=== PATIENT | male | born 1960 | race Caucasian/White ===

== ENCOUNTER 2021-10-06 06:15 | Day surgery (SDC) | payer OTHER ==
[~2021-10-06] VITALS: Ht 177.8 cm; Wt 110.0 kg
[~2021-10-06 06:15] MED LIST: HYDROmorphone 2 MG/ML INJ. IVP PRN; IV RINGERS,LACTATED 1000ML 1,000 ML IV SCH; PROCHLORPERAZINE 10 MG/2 ML VIAL. IVP PRN; fentaNYL PF VIAL 100 MCG/2 ML VIAL IVP PRN
[2021-10-06 06:29] VITALS: BP 200/105
[2021-10-06] MEDS ORDERED: hydrALAZINE 20 MG/ML VIAL. IVP ONE (06:30)
[2021-10-06] MEDS ORDERED: ASPI-886 PO (06:40)
[2021-10-06] MEDS ORDERED: DOXA8TAB59 PO (06:41)
[2021-10-06] MEDS ORDERED: FURO40TA4 PO (06:42)
[2021-10-06] MEDS ORDERED: LOSA-73 PO (06:43)
[2021-10-06] MEDS ORDERED: METF10007 PO (06:43)
[2021-10-06] MEDS ORDERED: POTA10TA12 PO (06:44)
[2021-10-06] MEDS ORDERED: PRAV40TA2 PO (06:44)
[2021-10-06] MEDS ORDERED: VENL150C PO (06:45)
[2021-10-06] MEDS ORDERED: PROPOFOL 10 MG/ML (20ML) VIAL. IV ONE (06:49)
[2021-10-06] MEDS ORDERED: ROCURONIUM 50 MG/5 ML VIAL. ONE ×2 (06:49→08:02)
[2021-10-06] MEDS ORDERED: EPINEPHrine VIAL 30 MG/30 ML VIAL ONE (06:54)
[2021-10-06] MEDS ORDERED: ONDANSETRON PF 4 MG/2 ML VIAL. ONE (06:57)
[2021-10-06] MEDS ORDERED: DEXAMETHASONE SOD PHOS 4 MG/ML VIAL ONE (06:57)
[2021-10-06] MEDS ORDERED: fentaNYL PF VIAL 100 MCG/2 ML VIAL ONE (06:58)
[2021-10-06] MEDS ORDERED: INSULIN LISPRO 100 UNIT/ML 3ML VIAL for OP,RR ONLY. SQ PRN (07:00)
[2021-10-06] MEDS ORDERED: BUPIVACAINE-EPI 0.5% 30 ML VIAL KIT. ONE (07:35)
--- NOTE | 2021-10-06 07:44 | HP ---
DATE OF SERVICE: 10/06/2021 ADMIT DATE: 10/06/2021 BRIEF HISTORY: The patient is a 39-year-old male who fell on his right shoulder in 08/2019, had significant problems with range of motion and also some weakness in the right shoulder. He had some significant issues after that occurred. This was noted to have significant pain and problematic issues as far as this right shoulder is concerned. He did undergo physical therapy, injections and multiple treatments. Nothing helped significantly at this point. Therefore, after evaluation, he was noted to need to undergo a right shoulder arthroscopy with repair of the rotator cuff. MEDICATIONS: Aspirin, doxazosin, furosemide, losartan, metformin, potassium chloride, pravastatin, and venlafaxine. MEDICATION ALLERGIES: None. PAST MEDICAL HISTORY: Also remarkable for hypertension as well as coronary artery disease, diabetes type 2, subsequent retinopathy, obesity, anxiety disorder. PAST SURGICAL HISTORY: Noncontributory. PHYSICAL EXAMINATION: Reveals there to be pain throughout the arc of motion. There are problems with isolation of the rotator cuff as far as strength is concerned, especially external rotation and isolation with a positive drop arm test. Also signs of pain with positive Speed test. No signs of instability of the shoulder. No atrophy of musculature, right versus left. Distal neurovascular status is fully intact. IMPRESSION AND PLAN: At this point, we have gone over the MRI as well as talked with him about the MRI, talked with him about treatment options. He wishes to undergo the right shoulder arthroscopy, possible tenolysis of the biceps tendon versus tenodesis, right rotator cuff repair at this point, subacromial decompression, possible distal clavicle resection. He understands the risks, complications as well as benefits and expectations of that surgery, postoperative protocol and followup. He will get set up in the operating room as soon as he talks with anesthesia today. JOSE ANGEL DR: Etta TID: [id number]
[2021-10-06] MEDS ORDERED: LABETALOL 20 MG/4 ML DISP.SYRIN. IVP ONE (07:47)
[2021-10-06] MEDS ORDERED: GLYCOPYRROLATE 1 MG/5 ML VIAL. ONE (07:48)
[2021-10-06] MEDS ORDERED: PHENYLEPHRINE in 0.9% NACL PF 1 MG/10 ML SYRINGE. IV ONE ×3 (07:53→08:31)
[2021-10-06] MEDS ORDERED: ePHEDrine PF IN SALINE 50 MG/10 ML SYRINGE. IV ONE (08:00)
[2021-10-06] MEDS ORDERED: SUGAMMADEX SODIUM 200 MG/2 ML VIAL. IVP ONE (08:00)
[2021-10-06] MEDS ORDERED: HYDROmorphone 2 MG/ML INJ. ONE ×2 (08:38→09:36)
--- NOTE | 2021-10-06 08:48 | PDOC4 ---
OPERATIVE NOTE Date: Date: Oct 06, 2021 Pre-Op Diagnosis: Impingement AC arthrosis rotator cuff tear right shoulder Post-Op Diagnosis: Partial bicep tear impingement AC arthrosis rotator cuff tear right shoulder Procedure Performed: Right shoulder arthroscopy with bicep tenolysis subacromial decompression distal clavicle resection mini open rotator cuff repair Surgeon: Jimbo Anesthesia Type: General Blood Loss: 30 cc Specimans Obtained: None Findings: See dictation Complications: None DENNY TALAVERA Jr. DO Oct 06, 2021 08:48
--- NOTE | 2021-10-06 09:02 | DISCH ---
DISCHARGE INSTRUCTIONS Condition on Discharge Condition on Discharge: Stable Activity After Discharge Activity Instructions for Disc: Avoid exertion Wound Incision Care Wound/Incision Care: Ice to area for comfort, Change dressing Other wound/incision instructi: May change dressing postoperative day #3 to sterile dressing Follow-Up Follow up with: 10 to 14 days Treatment/Equipment after DC Adaptive Equipment Issued: Brace/splint (Maintain immobilizer at all times right shoulder) DENNY TALAVERA Jr. DO Oct 06, 2021 09:02
[2021-10-06] MEDS ORDERED: MORPHINE SULFATE 2 MG/ML INJ. ONE (09:07)
[2021-10-06] MEDS: MORPHINE SULFATE 2 MG/ML INJ. IVP PRN ×2 (09:11→09:24)
[2021-10-06] MEDS ORDERED: HYDROcodone/APAP 7.5/325MG 1 TAB TABLET PO ONE (09:30)
[2021-10-06 10:03] VITALS: BP 155/72
--- NOTE | 2021-10-06 12:55 | OP ---
DATE OF SURGERY: 10/06/2021 PREOPERATIVE DIAGNOSIS: Rotator cuff tear with impingement, acromioclavicular arthrosis, right shoulder. POSTOPERATIVE DIAGNOSIS: Partial biceps tear with rotator cuff tear, impingement and acromioclavicular arthrosis, right shoulder. PROCEDURE: Right shoulder arthroscopy with biceps tenolysis, subacromial decompression, distal clavicle resection, mini open rotator cuff repair. SURGEON: Bo Choi Jr, DO WATER OPERATOR: Stefan Rivera. ANESTHESIA: General. COMPLICATIONS: None. ESTIMATED BLOOD LOSS: 30 mL. DESCRIPTION OF PROCEDURE: The patient was taken to the operative suite, given a general anesthetic, placed in the beach chair position. Right shoulder was then prepped and draped in a sterile fashion. Standard posterior portal was established. Glenohumeral joint was visualized and noted to have some degenerative changes on the glenoid, which were grade 2 and grade 3, no significant changes on the humeral head, however. There was noted to be a 50% tear of the biceps the labral tissue; however, was completely intact. Through the anterior portal was established, the biceps tenolysis was performed and debridement was undertaken of the insertion site to be back to stable tissue. The rotator cuff was noted to be a massive rotator cuff of the supraspinatus, infraspinatus and a portion of both the upper few millimeters of the subscapularis as well as the teres minor through the redirected portal, a subacromial decompression was performed with very large osteophytes anteriorly, mild to moderate lateral and then the large osteophytes at the AC joint were also subsequently removed as well as 1.8 cm of the distal clavicle at this point. This scope was then removed. An incision was made incorporating the lateral incision for incorporating the lateral portal. This was taken down to the bicep or the deltoid, which was split in line with the fascial regions. This was retracted anteriorly and posteriorly and the massive tear was mobilized. After this was mobilized appropriately, 3 suture anchors followed by a force posteriorly was performed. Then, two SwiveLocks were then placed for a lateral row fixation. There was good medial and lateral row fixation of this. This was, however, not able to be advanced all the way back to its original site, but approximately 1.5 cm from that site, but again could not be mobilized and any further no slides would be appropriate for this type of the tear. Therefore, this was noted to be a good repair. This was thoroughly irrigated. The split was reapproximated. Superficial tissues and skin was reapproximated. Sterile dressing was applied, there after local was placed. The patient was then taken from the operative bed to the postoperative bed, taken to PACU in stable condition. ANGIE/KARINA DR: Etta TID: [id number]
== END 2021-10-06 10:30 | disposition home or self-care (01) ==
LOC: SURG 06:15 → EEVIPCON 07:30 → SURG 10:30
PROVIDERS: ATTEND Orthopaedic Surgery
DX: M75.121 Complete rotator cuff tear or rupture of right shoulder, not specified as traumatic (principal); M19.011 Primary osteoarthritis, right shoulder; S46.211A Strain of muscle, fascia and tendon of other parts of biceps, right arm, initial encounter; I25.10 Atherosclerotic heart disease of native coronary artery without angina pectoris; I10 Essential (primary) hypertension; E78.00 Pure hypercholesterolemia, unspecified; E66.9 Obesity, unspecified; E11.9 Type 2 diabetes mellitus without complications; F41.9 Anxiety disorder, unspecified; Z79.82 Long term (current) use of aspirin; Z79.84 Long term (current) use of oral hypoglycemic drugs; Z79.899 Other long term (current) drug therapy; Z98.890 Other specified postprocedural states; X58.XXXA Exposure to other specified factors, initial encounter; Y93.89 Activity, other specified; Y92.89 Other specified places as the place of occurrence of the external cause; Y99.8 Other external cause status
CPT/HCPCS: 23420; 29824; 29826; 29828; 82962; A4209; A4213; A4565; A4928; A4930; A6223; A6253; A6402; C1713; J0171; J0360; J0690; J1100; J1170; J2270; J2370; J2405; J2704; J3010; J3490; A4222